=== PATIENT | female | born 1975 | race Asian ===

== ENCOUNTER → 2017-01-04 | Outpatient (CLI) | payer OTHER ==
--- NOTE | 2017-01-05 09:44 | MM ---
Reason for exam: screening (asymptomatic). Last mammogram was performed 5 years and 3 months ago. History: Taking hormonal contraceptives for 1 year beginning at age 35. Physical Findings: A clinical breast exam by your physician is recommended on an annual basis and results should be correlated with mammographic findings. MG 3D Screening Mammo W/Cad Bilateral CC and MLO view(s) were taken. Prior study comparison: October 07, 2011, bilateral digital screening mammo w/CAD. The breast tissue is extremely dense which could obscure a lesion on mammography. No suspicious abnormality on the left breast. Focal asymmetry 7mm upper outer quadrant at middle depth. ASSESSMENT: Incomplete: need additional imaging evaluation, BI-RAD 0 RECOMMENDATION: Special view mammogram of the right breast. If lesion persists on supplemental views, image directed ultrasound is recommended. [facility] will attempt to contact patient to return for supplemental views and ultrasound if indicated.
== END | disposition home or self-care (01) ==
LOC: RADMAMWWP 09:26
PROVIDERS: ATTEND Obstetrics & Gynecology
DX: Z12.31 Encounter for screening mammogram for malignant neoplasm of breast (principal)
CPT/HCPCS: 77063; G0202

== ENCOUNTER → 2017-01-09 | Outpatient (CLI) | payer OTHER ==
--- NOTE | 2017-01-09 11:24 | MM ---
Reason for exam: additional evaluation requested from abnormal screening. Last mammogram was performed less than 1 month ago. History: Taking hormonal contraceptives for 1 year beginning at age 35. Physical Findings: Nurse did not find any significant physical abnormalities on exam. MG 3D Work Up W/Cad RT Spot compression CC, spot compression MLO, and LM view(s) were taken of the right breast. Prior study comparison: January 04, 2017, bilateral MG 3d screening mammo w/cad. October 07, 2011, bilateral digital screening mammo w/CAD. The breast tissue is extremely dense which could obscure a lesion on mammography. 3D images suggest a circumscribed 11 x 16mm oval mass in the subareolar region. The upper outer quadrant focal asymmetry appears to disperse. The residual density has the appearance of normal tissue. These results were verbally communicated with the patient and result sheet given to the patient on 01/09/17. ASSESSMENT: Incomplete: need additional imaging evaluation, BI-RAD 0 RECOMMENDATION: Ultrasound of the right breast. (periareolar and upper outer quadrant)
--- NOTE | 2017-01-09 11:26 | USB ---
Reason for exam: additional evaluation requested from abnormal screening. History: Taking hormonal contraceptives for 1 year beginning at age 35. US Breast Workup Limited RT Right breast ultrasound demonstrates a 0.4 x 0.2 x 0.2cm oval lesion too small to characterize at 9 o'clock likely cystic and ducts seen at the retroareolar position. Upper outer quadrant and periareolar region was scanned. No other solid of cystic lesion is seen. These results were verbally communicated with the patient and result sheet given to the patient on 01/09/17. ASSESSMENT: Benign, BI-RAD 2 RECOMMENDATION: Return to routine screening mammogram schedule for both breasts.
== END | disposition home or self-care (01) ==
LOC: RADMAMWWP 08:54
PROVIDERS: ATTEND Obstetrics & Gynecology
DX: R92.8 Other abnormal and inconclusive findings on diagnostic imaging of breast (principal)
CPT/HCPCS: 76642; G0206; G0279

== ENCOUNTER → 2018-05-23 | Outpatient (CLI) | payer OTHER ==
[2018-05-23 12:57] LABS: Glucose 3 Hour, Gest 102 mg/dL
== END | disposition home or self-care (01) ==
LOC: LABWHC1 08:18
PROVIDERS: ATTEND Obstetrics & Gynecology
DX: O99.810 Abnormal glucose complicating pregnancy (principal); O26.819 Pregnancy related exhaustion and fatigue, unspecified trimester; Z3A.00 Weeks of gestation of pregnancy not specified
CPT/HCPCS: 36415; 82951; 82952

== ENCOUNTER 2018-08-20 06:04 | Inpatient (IN) | payer OTHER ==
--- NOTE | 2018-08-19 19:48 | P.HPOB ---
History of Present Illness H&P Date: 08/19/18 Chief Complaint: Induction of labor This is a 43-year-old female 4 para 2 with an estimated date of confinement of 08/26/2018, estimated gestational age of 39 and one sevenths weeks, who presents to labor and delivery for induction of labor. She admits to good movement. She denies any rupture of membranes. course has been essentially uncomplicated other than she did have an episode of some bleeding at approximately 31 weeks. She was given 2 doses of steroids and was taken off of work due to positive fibronectin. She was having irregular contractions but these did resolve. labs: Hepatitis B surface antigen-negative RPR-nonreactive Rubella-immune Blood type-A+ Antibody screen-negative HIV-nonreactive Hemoglobin-13.2 Random glucose-79 Maternity 21-negative One hour Glucola-141 Three-hour Glucola-within normal limits Group B streptococcus-negative Obstetrical history: . History of 2 vaginal deliveries at term. History of 1 miscarriage. Gynecologic history: No history of sexual transmitted diseases. Social history: She is . She works as a construction job cost estimator. Review of Systems Constitutional: Denies chills, Denies fever Eyes: denies blurred vision, denies pain Ears, nose, mouth and throat: Denies headache, Denies sore throat Cardiovascular: Denies chest pain, Denies shortness of breath Respiratory: Denies cough Genitourinary: Reports pelvic pain, Reports Musculoskeletal: Reports low back pain Integumentary: Denies pruritus, Denies rash Neurological: Denies numbness, Denies weakness Psychiatric: Denies anxiety, Denies depression Past Medical History Past Medical History: No Reported History Additional Past Medical History / Comment(s): Excema History of Any Multi-Drug Resistant Organisms: None Reported Additional Past Surgical History / Comment(s): Mckinney teeth Past Anesthesia/Blood Transfusion Reactions: No Reported Reaction Past Psychological History: Anxiety Smoking Status: Never smoker Past Alcohol Use History: None Reported Past Drug Use History: None Reported - Past Family History Mother Family Medical History: Hypertension Medications and Allergies Home Medications Medication Instructions Recorded Confirmed Type Pnv,Calcium 72/Iron/Folic Acid 1 each PO 12/15/15 History [ Plus Tablet] Aspirin 81 mg PO DAILY 06/20/18 06/20/18 History Cetirizine HCl [Zyrtec] 5 mg PO DAILY 06/20/18 06/20/18 History Fish Oil/Dha/Epa [Fish Oil 1,200 1 caplet 06/20/18 History mg Fish Oil] Allergies Allergy/AdvReac Type Severity Reaction Status Date / Time No Known Allergies Allergy Verified 12/16/15 06:04 Exam Osteopathic Statement: *. No significant issues noted on an osteopathic structural exam other than those noted in the History and Physical/Consult. HEENT: Within normal limits Heart: Regular rate and rhythm Lungs: Clear to auscultation bilaterally Abdomen: Cervix: 3 cm/60%/-3 station heart tones: 160s by Doppler Extremities: Negative Homans Assessment and Plan (1) 39 weeks gestation of Status: Acute Code(s): Z3A.39 - 39 WEEKS GESTATION OF SNOMED Code(s): 78279857 (2) Advanced maternal age (AMA), 40 years or greater Status: Acute Code(s): AHW0436 - SNOMED Code(s): 859518603 Plan: Proceed with oxytocin induction of labor. Epidural anesthesia if desired. Expectant management.
[2018-08-20] MEDS ORDERED: METHYLERGONOVINE 0.2 MG/ML 1 ML AMP IM PRN (06:19)
[2018-08-20] MEDS ORDERED: LIDOCAINE 0.5% (PF) 5 MG/ML (50 ML SDV) SQ PRN (06:19)
[2018-08-20] MEDS ORDERED: OXYTOCIN 30 UNITS/500 ML NS 30 UNIT in SALINE 1 500ML.BAG IV SCH (06:19)
[2018-08-20] MEDS ORDERED: OXYTOCIN 10 UNIT/ML 1 ML VIAL IM PRN (06:19)
[2018-08-20] MEDS ORDERED: LIDOCAINE 1% 20 ML VIAL (10MG/ML) FOR IV START INTRADERMA PRN (06:19)
[2018-08-20] MEDS ORDERED: CARBOPROST TROMETHAMINE 250 MCG/ML 1 ML AMP IM PRN (06:19)
[2018-08-20] MEDS ORDERED: TERBUTALINE 1 MG/ML VIAL SQ PRN (06:19)
[2018-08-20] MEDS: LACTATED RINGERS 1,000 ML IV SCH ×2 (06:31→10:29)
[2018-08-20 06:49] VITALS: BMI 30.6
[2018-08-20 06:51] LABS: Basophils % (A) 0 %; Eosinophils # (A) 0.1 k/uL (0-0.7); Eosinophils % (A) 2 %; HCT 40.2 % (34.0-46.0); HGB 13.3 gm/dL (11.4-16.0); Lymphocytes # (A) 1.3 k/uL (1.0-4.8); Lymphocytes % (A) 16 %; MCH 32.5 pg (25.0-35.0); MCHC 33.2 g/dL (31.0-37.0); Mean Platelet Volume 8.5; Monocytes # (A) 0.4 k/uL (0-1.0); Monocytes % (A) 5 %; Neutrophils # (A) 6.1 k/uL (1.3-7.7); Neutrophils % (A) 75 %; Platelet Count 233 k/uL (150-450); RDW 13.7 % (11.5-15.5); WBC 8.2 k/uL (3.8-10.6)
[2018-08-20] MEDS ORDERED: SODIUM CHLORIDE 0.9% 100 ML BAG ONE (10:00)
[2018-08-20] MEDS ORDERED: fentaNYL (PF) 50 MCG/ML 5 ML AMP ONE (10:00)
[2018-08-20] MEDS ORDERED: ROPIVACAINE 5MG/ML 20ML VIAL ONE (10:00)
[2018-08-20] MEDS ORDERED: ZOLPIDEM 5 MG TAB PO PRN (15:24)
[2018-08-20] MEDS ORDERED: WITCH HAZEL 1 EACH MED..PAD TOPICAL PRN (15:24)
[2018-08-20] MEDS ORDERED: SIMETHICONE 80 MG CHEWABLE PO PRN (15:24)
[2018-08-20] MEDS ORDERED: ACETAMINOPHEN TAB 325 MG TAB PO PRN (15:24)
[2018-08-20] MEDS ORDERED: OXYTOCIN 20 UNITS/1000 ML NS 1,000 ML IV SCH (15:24)
[2018-08-20] MEDS ORDERED: diphenhydrAMINE 50 MG/ML 1 ML VIAL IVP PRN ×2 (15:24)
[2018-08-20] MEDS ORDERED: LANOLIN CREAM 5 GM TUBE TOPICAL PRN (15:24)
[2018-08-20] MEDS ORDERED: BENZOCAINE/MENTHOL SPRAY 1 GM/SPRAY AEROSOL TOPICAL PRN (15:24)
[2018-08-20] MEDS ORDERED: diphenhydrAMINE 50 MG CAP PO PRN (15:24)
[2018-08-20] MEDS ORDERED: diphenhydrAMINE 25 MG CAP PO PRN (15:24)
[2018-08-20] MEDS ORDERED: HYDROCORTISONE 2.5% RECTAL CREAM 30 GM TUBE RECTAL PRN (15:24)
--- NOTE | 2018-08-20 17:00 | P.PROBDLV ---
Vaginal Delivery Note - . Vaginal Delivery Note: the patient progressed to complete dilation after oxytocin induction of labor and artificial rupture membranes with clear fluid noted. She did receive epidural anesthesia. Once reaching complete she began pushing. Infant's head came to a crown. With one further push, the 's head delivered across the perineum followed by the anterior shoulder. Nose and mouth were bulb suctioned at the perineum. With one further push, the remainder the easily delive red and was placed on mother's abdomen. Cord was clamped and cut and infant was taken to warmer for evaluation. A viable male was noted with scores of 8 at 1 minute and 9 at 5 minutes and infant weight was noted to be 7 lbs. 14 oz. Placenta delivered shortly thereafter, intact, with a three-vessel cord. Uterus did contract fairly well after oxytocin was given and uterine massage was carried out. Inspection of the perineum revealed a small second- degree perineal laceration. This area was anesthetized and then sutured with 3- 0 and 2-0 Vicryl suture in the usual multilayer fashion. after the repair was complete she still seemed to be oozing a little bit and therefore gloved hand was placed up inside of the uterus and a small piece of membrane was manually removed. No further tissue was obtained. Uterus did contract well. Estimated blood loss is approximately 200 mL's.
[2018-08-20] MEDS: IBUPROFEN 600 MG TAB PO PRN (17:25)
[2018-08-20] MEDS: SENNOSIDES-DOCUSATE SODIUM 1 EACH TAB PO SCH (21:50)
[2018-08-21] MEDS: IBUPROFEN 600 MG TAB PO PRN ×2 (00:39→08:04)
[2018-08-21 07:26] LABS: Basophils % (A) 0 %; Eosinophils # (A) 0.1 k/uL (0-0.7); Eosinophils % (A) 1 %; HCT 36.2 % (34.0-46.0); HGB 11.3 gm/dL (11.4-16.0); Lymphocytes # (A) 1.3 k/uL (1.0-4.8); Lymphocytes % (A) 8 %; MCH 31.7 pg (25.0-35.0); MCHC 31.3 g/dL (31.0-37.0); MCV 101.3 fL (80.0-100.0); Macrocytosis Slight; Mean Platelet Volume 8.5; Monocytes # (A) 0.8 k/uL (0-1.0); Monocytes % (A) 5 %; Neutrophils # (A) 12.9 k/uL (1.3-7.7); Neutrophils % (A) 84 %; Platelet Count 204 k/uL (150-450); RBC 3.57 m/uL (3.80-5.40); WBC 15.3 k/uL (3.8-10.6)
[2018-08-21] MEDS: SENNOSIDES-DOCUSATE SODIUM 1 EACH TAB PO SCH (08:05)
--- NOTE | 2018-08-21 08:57 | P.DS ---
Providers Date of admission: 08/20/18 06:04 Expected date of discharge: 08/21/18 Attending physician: Taisha Bradley Primary care physician: Stated None - Discharge Diagnosis(es) (1) 39 weeks gestation of Current Visit: No Status: Acute (2) Advanced maternal age (AMA), 40 years or greater Current Visit: No Status: Acute Hospital Course: This is a 43-year-old female 4 para 2 at 39 and one sevenths weeks who presented to labor and delivery for induction of labor. She admits to good movement. Lochia is decreasing. Pain is fairly well controlled with ibuprofen. She is breast-feeding. Vital signs are stable. Abdomen is soft with fundus firm and nontender. Extremities show negative Homans. Impression is status post vaginal delivery day #1. Plan is to discharge home today. Routine instructions are given. She will be given a pres cription for ibuprofen. She does have a breast pump at home. She is advised to call the office if she has any further questions or concerns prior to her point in time. She is advised follow-up in the office in 6 weeks. Procedures: Oxytocin induction of labor Spontaneous vaginal delivery of a viable male on 08/20/2018 Patient Condition at Discharge: Stable Plan - Discharge Summary New Discharge Prescriptions: New Ibuprofen [Motrin] 600 mg PO Q6HR PRN #60 tab PRN Reason: Mild Pain Or Fever >= 100.5 Continue Pnv,Calcium 72/Iron/Folic Acid [ Plus Tablet] 1 each PO DAILY Fish Oil/Dha/Epa [Fish Oil 1,200 mg Fish Oil] 1 caplet PO DAILY Discontinued Aspirin 81 mg PO DAILY No Action Cetirizine HCl [Zyrtec] 5 mg PO DAILY PRN PRN Reason: Allergic Reaction Discharge Medication List Pnv,Calcium 72/Iron/Folic Acid [ Plus Tablet] 1 each PO DAILY 12/15/15 [History] Cetirizine HCl [Zyrtec] 5 mg PO DAILY PRN 06/20/18 [History] Fish Oil/Dha/Epa [Fish Oil 1,200 mg Fish Oil] 1 caplet PO DAILY 06/20/18 [History] Ibuprofen [Motrin] 600 mg PO Q6HR PRN #60 tab 08/21/18 [Rx] Follow up Appointment(s)/Referral(s): Taisha Bradley DO [Doctor of Osteopathic Medicine] - 1 Week Activity/Diet/Wound Care/Special Instructions: Instructions 1. Do not begin any exercise program for 3 weeks. 2. Do not resume sexual relations for 3 weeks or longer if uncomfortable. 3. You may take tub baths or showers at any time. 4. You may use tampons if desired after 3 weeks. 5. Keep the area of episiotomy (stitches) clean and dry. 6. If you are not nursing, wear a good fitting, supportive bra during the day and limit fluid intake for at least 1 week to prevent breast engorgement. 7. Call the office, [phone], within the next week to make appointment for your 6 week checkup if it has not already been made. 8. Report any of the following occurrences to the doctor promptly: a. Heavy, excessive bleeding b. Chills, fever c. Burning or frequency of urination d. Pain or redness and breasts if nursing e. Increasing pain or swelling in episiotomy (stitches). In addition to the above instructions, the following additional should be followed: 1. No heavy lifting or straining (exercising) until after 6 week checkup. 2. Keep abdominal incision clean and dry: You may wear a dressing if more comfortable. 3. Make office appointment for 10 days after going home or as instructed by her doctor. Discharge Disposition: HOME SELF-CARE
[2018-08-21 14:56] VITALS: BP 108/64; PULSE 82; RESP 20; TEMP 98.2
== END 2018-08-21 15:39 | disposition home or self-care (01) | DRG 807 ==
LOC: 4FBP 06:04 → 6PED 08-21 12:26
PROVIDERS: ADMIT Obstetrics & Gynecology; ATTEND Obstetrics & Gynecology
PROC: 10907ZC Drainage of Amniotic Fluid, Therapeutic from Products of Conception, Via Natural or Artificial Opening (ICD-10-PCS; 2018-08-19)
PROC: 3E033VJ Introduction of Other Hormone into Peripheral Vein, Percutaneous Approach (ICD-10-PCS; 2018-08-19)
PROC: 10E0XZZ Delivery of Products of Conception, External Approach (ICD-10-PCS; principal; 2018-08-20)
PROC: 0KQM0ZZ Repair Perineum Muscle, Open Approach (ICD-10-PCS; 2018-08-20)
PROC: 00HU33Z Insertion of Infusion Device into Spinal Canal, Percutaneous Approach (ICD-10-PCS; 2018-08-20)
PROC: 3E0R3BZ Introduction of Anesthetic Agent into Spinal Canal, Percutaneous Approach (ICD-10-PCS; 2018-08-20)
DX: O99.62 Diseases of the digestive system complicating childbirth (principal); Z37.0 Single live birth; O70.1 Second degree perineal laceration during delivery; O99.344 Other mental disorders complicating childbirth; K21.9 Gastro-esophageal reflux disease without esophagitis; F41.9 Anxiety disorder, unspecified; Z3A.39 39 weeks gestation of pregnancy; Z79.82 Long term (current) use of aspirin; Z79.899 Other long term (current) drug therapy; Z87.891 Personal history of nicotine dependence; Z87.09 Personal history of other diseases of the respiratory system; Z82.49 Family history of ischemic heart disease and other diseases of the circulatory system
CPT/HCPCS: 85025; 86850; 86900; 86901

== ENCOUNTER → 2020-02-12 | Outpatient (CLI) | payer OTHER ==
--- NOTE | 2020-02-13 11:26 | MM ---
Reason for exam: screening (asymptomatic). Last mammogram was performed 3 years and 1 month ago. History: Taking hormonal contraceptives for 1 year beginning at age 35. Physical Findings: A clinical breast exam by your physician is recommended on an annual basis and results should be correlated with mammographic findings. MG 3D Screening Mammo W/Cad Bilateral CC and MLO view(s) were taken. Prior study comparison: January 09, 2017, right breast MG 3d work up w/cad RT. January 04, 2017, bilateral MG 3d screening mammo w/cad. The breast tissue is heterogeneously dense. This may lower the sensitivity of mammography. No significant changes when compared with prior studies. ASSESSMENT: Benign, BI-RAD 2 RECOMMENDATION: Routine screening mammogram of both breasts in 1 year.
== END | disposition home or self-care (01) ==
LOC: RADMAMWWP 09:33
PROVIDERS: ATTEND Obstetrics & Gynecology
DX: Z12.31 Encounter for screening mammogram for malignant neoplasm of breast (principal)
CPT/HCPCS: 77063; 77067

== ENCOUNTER → 2021-05-28 | Outpatient (CLI) | payer OTHER ==
--- NOTE | 2021-05-31 13:38 | MM ---
Reason for exam: screening (asymptomatic). Last mammogram was performed 1 year and 3 months ago. History: Taking hormonal contraceptives for 1 year beginning at age 35. Physical Findings: A clinical breast exam by your physician is recommended on an annual basis and results should be correlated with mammographic findings. MG 3D Screening Mammo W/Cad Bilateral CC and MLO view(s) were taken. Prior study comparison: February 12, 2020, bilateral MG 3d screening mammo w/cad. January 09, 2017, right breast MG 3d work up w/cad RT. The breast tissue is extremely dense which could obscure a lesion on mammography. No significant changes when compared with prior studies. ASSESSMENT: Benign, BI-RAD 2 RECOMMENDATION: Routine screening mammogram of both breasts in 1 year.
== END | disposition home or self-care (01) ==
LOC: RADMAMWWP 16:31
PROVIDERS: ATTEND Obstetrics & Gynecology
DX: Z12.31 Encounter for screening mammogram for malignant neoplasm of breast (principal)
CPT/HCPCS: 77063; 77067

== ENCOUNTER → 2022-10-03 | Outpatient (CLI) | payer BC ==
--- NOTE | 2022-10-05 08:11 | MM ---
Reason for Exam: Screening (asymptomatic). Last mammogram was performed 1 year(s) and 5 month(s) ago. Patient History: Menarche at age 12. First Full-Term at age 31. Late child-bearing (after 31). Currently using Hormonal Contraceptives, beginning at age 35 for 1 year. Last menstrual period: 09/16/2022 Risk Values: Cassandra 5 year model risk: 1.3%. NCI Lifetime model risk: 14.0%. Prior Study Comparison: 01/09/2017 Right Diagnostic Mammogram, [facility]. 02/12/2020 Bilateral Screening Mammogram, [facility]. 05/28/2021 Bilateral Screening Mammogram, [facility]. Tissue Density: The breast tissue is extremely dense which could obscure a lesion on mammography. Findings: Analyzed By CAD. There is no suspicious group of microcalcifications or new suspicious mass in either breast. Overall Assessment: Benign, BI-RAD 2 Management: Screening Mammogram of both breasts in 1 year. . Patient should continue monthly self-breast exams. A clinical breast exam by your physician is recommended on an annual basis. This exam should not preclude additional follow-up of suspicious palpable abnormalities. Note on Cassandra scores and lifetime risk: 1. A Cassandra score greater than 3% is considered moderate risk. If this is the case, consider specialist referral to assess eligibility for a risk reducing agent. 2. If overall lifetime risk for the development of breast cancer is 20% or higher, the patient may qualify for future screening with alternating mammogram and breast MRI. Electronically signed and approved by: Nirav Morin M.D. Radiologis
== END | disposition home or self-care (01) ==
LOC: RADMAMWWP 13:00
PROVIDERS: ATTEND Obstetrics & Gynecology
DX: Z12.31 Encounter for screening mammogram for malignant neoplasm of breast (principal)
CPT/HCPCS: 77063; 77067